=== PATIENT | male | born 1935 | race American Indian/Alaskan Native ===

== ENCOUNTER 2019-03-29 09:17 | Observation (INO) | payer BC, MEDICARE ==
[2019-03-29 09:17] VITALS: BMI 28.0
--- NOTE | 2019-03-29 10:21 | RAD ---
Date of service: 03/29/2019 PROCEDURE: CHEST RADIOGRAPH, 1 VIEW HISTORY: chest pain COMPARISON: 05/30/2015 FINDINGS: LUNGS: Clear. PLEURA: No pneumothorax or pleural fluid seen. CARDIOVASCULAR: No aortic atherosclerotic calcification present. Normal heart size. Permanent pacemaker. OSSEOUS STRUCTURES: No significant abnormalities. VISUALIZED UPPER ABDOMEN: Normal. OTHER FINDINGS: None. IMPRESSION: No active disease.
[2019-03-29 10:38] LABS: BASO % 0.5 % (0.0-2.0); EOS # 0.2 K/uL (0.0-0.7); LYMPH # 0.5 K/uL (1.0-4.3); LYMPH % 7.1 % (20.0-40.0); MEAN CELL VOLUME 85.1 fL (80.0-94.0); MEAN CORPUSCULAR HEMOGLOBIN 28.1 pg (27.0-31.0); MEAN PLATELET VOLUME 9.1 fL (7.2-11.7); MONO # 0.4 K/uL (0.0-0.8); MONO % 5.4 % (0.0-10.0); NEUT # 5.6 K/uL (1.8-7.0); PLATELET COUNT 163 K/uL (130-400); RBC 4.99 Mil/uL (4.40-5.90); RED CELL DISTRIBUTION WIDTH 14.3 % (11.5-14.5); WHITE BLOOD COUNT 6.7 K/uL (4.8-10.8)
--- NOTE | 2019-03-29 10:40 | C.PDOC ---
Time Seen by Provider: 03/29/19 09:34 Chief Complaint (Nursing): Dizziness/Lightheaded Past Medical History Vital Signs: Last Vital Signs Temp 98.7 F 03/29/19 09:24 Pulse 71 03/29/19 09:24 Resp 18 03/29/19 09:24 BP 134/73 03/29/19 09:24 Pulse Ox 100 03/29/19 09:24 Primary Care Provider: Sanjiv Mandel - Medical History PMH: Arthritis, Atrial Fibrillation, Benign Prostatic Hyperplasia, Cardia Arrhythmia (A FIB), CHF, HTN, Hypercholesterolemia, Kidney Stones, Peripheral Edema, Chronic Kidney Disease Comment Only: Osteoporosis (.) Surgical History: Appendectomy, Endoscopy (1 MONTH AGO), Pacemaker - [facility] Procedures CATARAC PHACOEMULS/ASPIR (11/26/14) CLOSED ENDOSCOPIC BIOPSY OF LARGE INTESTINE (01/18/14) ESOPHAGEAL DILATION (01/08/15) INITIAL INSERT OF SING CHAMB DEV, RATE RESPONSIVE (04/29/15) INITIAL INSERT OF TRANS. LEADS INTO VENTRICLE (04/29/15) INSERT INDWELLING CATH (02/02/14) INSERT LENS AT CATAR EXT (11/26/14) OTH & OPEN REPAIR DIRECT INGUINAL HERNIA W GRAFT OR PROSTH (03/03/15) OTH TRANSURETHRAL PROSTATECTOMY (01/18/14) OTHER ENDOSCOPY OF SM INTEST (01/08/15) OTHER ESOPHAGOSCOPY (07/31/14) RETROGRADE PYELOGRAM (01/18/14) Family History: States: Unknown Family Hx - Social History Hx Tobacco Use: Yes Hx Alcohol Use: No Hx Substance Use: No - Immunization History Hx Tetanus Toxoid Vaccination: No Hx Influenza Vaccination: Yes Hx Pneumococcal Vaccination: No ED Course And Treatment ECG: Viewed By Me, Discussed With Ornithology Teacher Interpretation Of ECG: Ventricular rhythm Rate From EC O2 Sat by Pulse Oximetry: 100 Disposition - Disposition
--- NOTE | 2019-03-29 10:42 | C.PDOC ---
History Of Present Illness 83 year old male with PMHx of HTN and pacemaker placement presents to the ED complaining of intermittent dizziness for 3 days. Reports he had an appointment today with his Car Repairer at [facility] but he felt too dizzy which prompted ED visit. States he feels light-headed and unsteady. Notes dizziness is associated with movement and positioning and he feels better when he is lying down. Denies any fever, chills, dysuria, constipation, chest pain, abdominal pain, headache, nausea, vomiting. Denies history of NC, stroke, or cardiac stents. Time Seen by Provider: 03/29/19 09:34 Chief Complaint (Nursing): Dizziness/Lightheaded Past Medical History Vital Signs: Last Vital Signs Temp 98.7 F 03/29/19 09:24 Pulse 71 03/29/19 09:24 Resp 18 03/29/19 09:24 BP 134/73 03/29/19 09:24 Pulse Ox 100 03/29/19 09:24 Primary Care Provider: Sanjiv Mandel - Medical History PMH: Arthritis, Atrial Fibrillation, Benign Prostatic Hyperplasia, Cardia Arrhythmia (A FIB), CHF, HTN, Hypercholesterolemia, Kidney Stones, Peripheral Edema, Chronic Kidney Disease Comment Only: Osteoporosis (.) Surgical History: Appendectomy, Endoscopy (1 MONTH AGO), Pacemaker - [facility] Procedures CATARAC PHACOEMULS/ASPIR (11/26/14) CLOSED ENDOSCOPIC BIOPSY OF LARGE INTESTINE (01/18/14) ESOPHAGEAL DILATION (01/08/15) INITIAL INSERT OF SING CHAMB DEV, RATE RESPONSIVE (04/29/15) INITIAL INSERT OF TRANS. LEADS INTO VENTRICLE (04/29/15) INSERT INDWELLING CATH (02/02/14) INSERT LENS AT CATAR EXT (11/26/14) OTH & OPEN REPAIR DIRECT INGUINAL HERNIA W GRAFT OR PROSTH (03/03/15) OTH TRANSURETHRAL PROSTATECTOMY (01/18/14) OTHER ENDOSCOPY OF SM INTEST (01/08/15) OTHER ESOPHAGOSCOPY (07/31/14) RETROGRADE PYELOGRAM (01/18/14) Family History: States: Unknown Family Hx - Social History Hx Tobacco Use: Yes Hx Alcohol Use: No Hx Substance Use: No - Immunization History Hx Tetanus Toxoid Vaccination: No Hx Influenza Vaccination: Yes Hx Pneumococcal Vaccination: No Review Of Systems Except As Marked, All Systems Reviewed And Found Negative. Constitutional: Negative for: Fever, Chills Cardiovascular: Negative for: Chest Pain Gastrointestinal: Negative for: Nausea, Vomiting, Abdominal Pain Genitourinary: Negative for: Dysuria Neurological: Positive for: Dizziness Physical Exam - Physical Exam Appears: Non-toxic, No Acute Distress Skin: Warm, Dry, No Rash Head: Normacephalic Eye(s): bilateral: Normal Inspection Nose: Normal Oral Mucosa: Moist Neck: Supple Cardiovascular: Rhythm Regular, Other (paced rhythm) Respiratory: Normal Breath Sounds, No Rales, No Rhonchi, No Wheezing Gastrointestinal/Abdominal: Soft, No Tenderness Extremity: Normal ROM, Other (5/5 strength of bilateral upper extremities and lower extremities ) Extremity: Bilateral: Atraumatic, No Pedal Edema, Normal Color And Temperature, Normal ROM Neurological/Psych: Oriented x3, Normal Speech, Normal Cranial Nerves (2-12 cranial nerves WNL ), Normal Motor, Normal Sensation ED Course And Treatment - Laboratory Results Result Diagrams: 03/29/19 10:29 03/29/19 10:29 ECG: Interpreted By Me, Viewed By Me Interpretation Of ECG: Paced rhythm Rate From EC O2 Sat by Pulse Oximetry: 100 (RA) - Other Rad CXR X-Ray: Viewed By Me, Read By Radiologist Interpretation: Accession No. : [id number]. Patient Name / ID : ALLIE POLLACK / [id number]. Exam Date : 03/29/2019 10:04:03 ( Approved ). Study Comment : Sex / Age : M / 83Y. Creator : Alina Diana. Dictator : Bassem Tucker MD. Feed Mill Lab Technician : Vulcanizer Rubber Plate : Bassem Tucker MD. Approver2 : Report Date : 03/29/2019 10:11:26. My Comment : . Date of service: 03/29/2019. PROCEDURE: CHEST RADIOGRAPH, 1 VIEW. HISTORY: chest pain. COMPARISON: 05/30/2015. FINDINGS: LUNGS: Clear. PLEURA: No pneumothorax or pleural fluid seen. CARDIOVASCULAR: No aortic atherosclerotic calcification present. Normal heart size. Permanent pacemaker. OSSEOUS STRUCTURES: No significant abnormalities. VISUALIZED UPPER ABDOMEN: Normal. OTHER FINDINGS: None. IMPRESSION: No active disease. - CT Scan/US CT head Other Rad Studies (CT/US): Read By Radiologist, Radiology Report Reviewed CT/US Interpretation: Accession No. : [id number]. Patient Name / ID : ALLIE POLLACK / [id number]. Exam Date : 03/29/2019 10:56:04 ( Approved ). Study Comment : Sex / Age : M / 83Y. Creator : Gisselle Bang. Dictator : Kathy Menendez MD. Feed Mill Lab Technician : Vul[employer] Rub[employer] Plate : Kathy Menendez MD. [employer] Plate 2 : Report Date : 03/29/2019 11:08:25. My Comment : . Date of service: 03/29/2019. PROCEDURE: CT HEAD WITHOUT CONTRAST. HISTORY: R/O Bleed. COMPARISON: 12/15/2013. TECHNIQUE: Axial computed tomography images were obtained through the head/brain without intravenous contrast. Radiation dose: Total exam DLP = 1003.91 mGy-cm. This CT exam was performed using one or more of the following dose reduction techniques: Automated exposure control, adjustment of the mA and/or kV according to patient size, and/or use of iterative reconstruction technique. FINDINGS: HEMORRHAGE: No intracranial hemorrhage. BRAIN: There are mild chronic microangiopathic changes. There is no mass, mass effect or abnormal extra-axial fluid collection. There is no territorial infarction. The midline sagittal structures are normal. VENTRICLES: There is mild age-related global parenchymal volume loss and proportionate enlargement of the ventricles and cortical sulci. CALVARIUM: There is no calvarial fracture or extracranial soft tissue swelling. PARANASAL SINUSES: Predominantly clear. MASTOID AIR CELLS: Predominantly clear. OTHER FINDINGS: None. IMPRESSION: No acute intracranial abnormality. Mild chronic microangiopathic changes and mild age- related global parenchymal volume loss. Medical Decision Making Medical Decision Making: Differentials: Stroke, Cardiac related syncope, Positional vertigo, infections Plan: - CT head - EKG - Bloodwork - UA - CXR On reevaluation, patient reports he is still feeling lightheaded and dizzy. Discussed with patient possibility of admission. Agrees to stay for observation. Spoke with Dr. Bell, Cardiology. Agrees with plan Spoke with Dr. Otto. Accepts patient for admission. Disposition Discussed With .: Carla Henry Doctor Will See Patient In The: Hospital - Disposition Disposition: HOSPITALIZED Disposition Time: 12:09 Condition: GUARDED - Clinical Impression Clinical Impression: Dizziness, Atrial fibrillation Decision To Admit - Pt Status Changed To: Hospital Disposition Of: Observation - . Bed Request Type: Telemetry Admitting Physician: Carla Henry Patient Diagnosis: Dizziness, Atrial fibrillation
[2019-03-29 11:00] LABS: BLOOD UREA NITROGEN 25 mg/dL (9-20); CALCIUM 9.2 mg/dl (8.6-10.4); GFR NON-AFRICAN AMERICAN 52
[2019-03-29 11:04] LABS: ALB/GLOB RATIO 1.3 (1.0-2.1); ALBUMIN 4.1 g/dL (3.5-5.0); ALT/SGPT < 6 U/L (21-72); AST/SGOT 40 U/L (17-59)
[2019-03-29 11:06] LABS: B-TYPE NATRIURETIC PEPTIDE 4820 pg/mL (0-900)
[2019-03-29 11:07] LABS: EOSINOPHIL 4 % (0-4); LYMPHOCYTE 10 % (20-40); MONOCYTE 9 % (0-10); NEUTROPHIL 77 % (50-75); PLATELET ESTIMATE NORMAL (NORMAL); TOTAL CELLS COUNTED 100
[2019-03-29 11:10] LABS: LARGE PLATELETS PRESENT; OVALOCYTES SLIGHT
--- NOTE | 2019-03-29 11:23 | CT ---
Date of service: 03/29/2019 PROCEDURE: CT HEAD WITHOUT CONTRAST. HISTORY: R/O Bleed COMPARISON: 12/15/2013. TECHNIQUE: Axial computed tomography images were obtained through the head/brain without intravenous contrast. Radiation dose: Total exam DLP = 1003.91 mGy-cm. This CT exam was performed using one or more of the following dose reduction techniques: Automated exposure control, adjustment of the mA and/or kV according to patient size, and/or use of iterative reconstruction technique. FINDINGS: HEMORRHAGE: No intracranial hemorrhage. BRAIN: There are mild chronic microangiopathic changes. There is no mass, mass effect or abnormal extra-axial fluid collection. There is no territorial infarction. The midline sagittal structures are normal. VENTRICLES: There is mild age-related global parenchymal volume loss and proportionate enlargement of the ventricles and cortical sulci. CALVARIUM: There is no calvarial fracture or extracranial soft tissue swelling. PARANASAL SINUSES: Predominantly clear. MASTOID AIR CELLS: Predominantly clear. OTHER FINDINGS: None. IMPRESSION: No acute intracranial abnormality. Mild chronic microangiopathic changes and mild age-related global parenchymal volume loss.
[2019-03-29 11:47] LABS: URINE BILIRUBIN NEGATIVE (NEGATIVE); URINE BLOOD NEGATIVE (NEGATIVE); URINE CLARITY Clear (Clear); URINE COLOR Yellow (YELLOW); URINE GLUCOSE (UA) NORMAL (Normal); URINE LEUKOCYTE ESTERASE NEG Leu/uL (Negative); URINE PROTEIN NEGATIVE (NEGATIVE)
--- NOTE | 2019-03-29 17:27 | CP.PCM.HP ---
History of Present Illness - History of Present Illness History of Present Illness: This is an 83 y/o male hypetensive with history of paroxysmal afib and SSS S/P permanent Pacemaker insertion who was amitted through the ER because of severe dizziness. Patient claims that the dizziness started this morning when he felt very dizzy on and off whenever he moved around. He was unable to walk because he felt very unsteady. He denies any palpitation, chest pain or ringing in the ears. He went tot he ER because of the persistent dizziness and was subsequently admitted for observation and further evaluation. Present on Admission - Present on Admission Any Indicators Present on Admission: No Past Patient History - Infectious Disease Hx of Infectious Diseases: None - Past Medical History & Family History Past Medical History?: Yes - Past Social History Smoking Status: Former Smoker Alcohol: None Home Situation {Lives}: Alone, Other - CARDIAC Hx Atrial Fibrillation: Yes Hx Cardia Arrhythmia: Yes (A FIB) Hx Congestive Heart Failure: Yes Hx Hypercholesterolemia: Yes Hx Hypertension: Yes Hx Pacemaker: Yes Hx Peripheral Edema: Yes - PULMONARY Hx Respiratory Disorders: No - NEUROLOGICAL Hx Paralysis: No - HEENT Hx HEENT Problems: Yes Hx Cataracts: Yes (JOEL. REMOVED) - RENAL Hx Chronic Kidney Disease: Yes Hx Kidney Stones: Yes - ENDOCRINE/METABOLIC Hx Endocrine Disorders: No - HEMATOLOGICAL/ONCOLOGICAL Hx Blood Transfusions: No - INTEGUMENTARY Hx Dermatological Problems: Yes - MUSCULOSKELETAL/RHEUMATOLOGICAL Hx Arthritis: Yes Hx Osteoporosis: (.) - GASTROINTESTINAL Hx Gastrointestinal Disorders: No HX Swallowing Problems: Yes (History of benign esophageal stricture) - GENITOURINARY/GYNECOLOGICAL Hx Genitourinary Disorders: Yes Hx Prostate Problems: Yes (ENLARGED) - PSYCHIATRIC Hx Substance Use: No - SURGICAL HISTORY Hx Appendectomy: Yes - ANESTHESIA Hx Anesthesia: Yes Hx Anesthesia Reactions: No Hx Malignant Hyperthermia: No Meds Allergies/Adverse Reactions: Allergies Allergy/AdvReac Type Severity Reaction Status Date / Time No Known Allergies Allergy Verified 10/01/15 06:59 Physical Exam - Constitutional Appears: No Acute Distress - Head Exam Head Exam: NORMOCEPHALIC - Eye Exam Eye Exam: Normal appearance - ENT Exam ENT Exam: Mucous Membranes Moist, Normal Exam - Neck Exam Neck exam: Positive for: Normal Inspection - Respiratory Exam Respiratory Exam: Clear to Auscultation Bilateral, NORMAL BREATHING PATTERN - Cardiovascular Exam Cardiovascular Exam: REGULAR RHYTHM, RRR, +S1, +S2 - GI/Abdominal Exam GI & Abdominal Exam: Normal Bowel Sounds, Soft - Extremities Exam Extremities exam: Positive for: normal inspection - Back Exam Back exam: NORMAL INSPECTION - Neurological Exam Neurological exam: Alert, CN II-XII Intact, Oriented x3 - Psychiatric Exam Psychiatric exam: Normal Affect, Normal Mood - Skin Skin Exam: Dry, Intact, Normal Color, Warm Results - Vital Signs Recent Vital Signs: Last Vital Signs Temp 98.4 F 03/29/19 16:34 Pulse 76 03/29/19 16:34 Resp 20 03/29/19 16:34 BP 153/84 H 03/29/19 16:34 Pulse Ox 98 03/29/19 16:34 - Labs Result Diagrams: 03/29/19 10:29 03/29/19 10:29 Labs: Laboratory Results - last 24 hr 03/29/19 03/29/19 03/29/19 09:33 09:48 10:29 WBC 6.7 RBC 4.99 Hgb 14.0 Hct 42.5 MCV 85.1 MCH 28.1 MCHC 33.0 RDW 14.3 Plt Count 163 MPV 9.1 Neut % (Auto) 84.0 H Lymph % (Auto) 7.1 L [place] % (Auto) 5.4 Eos % (Auto) 3.0 Baso % (Auto) 0.5 Neut # (Auto) 5.6 Lymph # (Auto) 0.5 L [place] # (Auto) 0.4 Eos # (Auto) 0.2 Baso # (Auto) 0.0 Neutrophils % (Manual) 77 H Lymphocytes % (Manual) 10 L Monocytes % (Manual) 9 Eosinophils % (Manual) 4 Platelet Estimate Normal Large Platelets Present Ovalocytes Slight Sodium Potassium Chloride Carbon Dioxide Anion Gap BUN Creatinine Est GFR ( Amer) Est GFR (Non-Af Amer) POC Glucose (mg/dL) 111 H Random Glucose Calcium Total Bilirubin AST ALT Alkaline Phosphatase Troponin I NT-Pro-B Natriuret Pep Total Protein Albumin Globulin Albumin/Globulin Ratio Urine Color Yellow Urine Clarity Clear Urine pH 5.0 Ur Specific [place] 1.014 Urine Protein Negative Urine Glucose (UA) Normal Urine Ketones Negative Urine Blood Negative Urine Nitrate Negative Urine Bilirubin Negative Urine Urobilinogen 2.0 Ur Leukocyte Esterase Neg Urine WBC (Auto) < 1 Urine RBC (Auto) 2 03/29/19 10:29 WBC RBC Hgb Hct MCV MCH MCHC RDW Plt Count MPV Neut % (Auto) Lymph % (Auto) [place] % (Auto) Eos % (Auto) Baso % (Auto) Neut # (Auto) Lymph # (Auto) [place] # (Auto) Eos # (Auto) Baso # (Auto) Neutrophils % (Manual) Lymphocytes % (Manual) Monocytes % (Manual) Eosinophils % (Manual) Platelet Estimate Large Platelets Ovalocytes Sodium 135 Potassium 5.4 H Chloride 104 Carbon Dioxide 21 L Anion Gap 16 BUN 25 H Creatinine 1.3 Est GFR ( Amer) > 60 Est GFR (Non-Af Amer) 52 POC Glucose (mg/dL) Random Glucose 97 Calcium 9.2 Total Bilirubin 1.5 H AST 40 ALT < 6 L D Alkaline Phosphatase 50 Troponin I 0.0220 NT-Pro-B Natriuret Pep 4820 H Total Protein 7.3 Albumin 4.1 Globulin 3.2 Albumin/Globulin Ratio 1.3 Urine Color Urine Clarity Urine pH Ur Specific [place] Urine Protein Urine Glucose (UA) Urine Ketones Urine Blood Urine Nitrate Urine Bilirubin Urine Urobilinogen Ur Leukocyte Esterase Urine WBC (Auto) Urine RBC (Auto) Assessment & Plan (1) Dizziness Status: Acute (2) Dehydration Assessment and Plan: +pre-renal azotemoia Will start on cautious hydration and monitor electrolytes and blood count Status: Acute (3) Hypertension Status: Chronic Priority: Medium (4) Presence of cardiac pacemaker Assessment and Plan: stable, pacemaker seems to be functioning well as noted on EKG and monitor Status: Chronic Decision To Admit - Pt Status Changed To: Hospital Disposition Of: Observation - . Bed Request Type: Telemetry Admitting Physician: Carla Henry
[2019-03-29] MEDS: Sodium Chloride 0.45% 1,000 ML IV SCH (18:30)
[2019-03-30 05:13] VITALS: BP 144/78
[2019-03-30] MEDS: Sodium Chloride 0.45% 1,000 ML IV SCH (06:00)
[2019-03-30 06:51] LABS: HEMOGLOBIN 13.9 g/dL (12.0-18.0); MEAN CELL VOLUME 84.9 fL (80.0-94.0); MEAN CORPUSCULAR HEMOGLOBIN 28.4 pg (27.0-31.0); MEAN CORPUSCULAR HGB CONC 33.5 g/dL (33.0-37.0); MEAN PLATELET VOLUME 8.7 fL (7.2-11.7); RBC 4.9 Mil/uL (4.40-5.90); RED CELL DISTRIBUTION WIDTH 14.3 % (11.5-14.5); WHITE BLOOD COUNT 5.3 K/uL (4.8-10.8)
[2019-03-30 07:05] LABS: ALB/GLOB RATIO 1.2 (1.0-2.1); ALBUMIN 3.5 g/dL (3.5-5.0); ALT/SGPT 18 U/L (21-72); AST/SGOT 16 U/L (17-59); BLOOD UREA NITROGEN 22 mg/dL (9-20); CALCIUM 9.1 mg/dl (8.6-10.4); GFR NON-AFRICAN AMERICAN 52
[2019-03-30 07:11] LABS: CK-MB 1.46 ng/mL (0.0-3.38)
[2019-03-30 08:26] VITALS: PULSE 69
[2019-03-30] MEDS ORDERED: Pantoprazole 40 mg EC Tab PO SCH (10:00)
[2019-03-30 11:46] VITALS: RESP 18; TEMP 97.8; O2SAT 98
--- NOTE | 2019-03-30 11:58 | CP.PCM.CON ---
History of Present Illness - History of Present Illness History of Present Illness: CARDIAC EP CONSULT NOTE Reason for consult: dizziness HPI: Pt is an 83 yo man with hx of PAF (on Xarelto); SSS; PPM implant; who pr esents with progressive dizziness starting yesterday. It is worsening by standing or moving around. No syncope, palpitations, SOB, chest pain. Drinks 1-2 glasses of water daily. EP is now consulted by Dr. Carla Otto PMH: as above ROS: as above, otherwise negative SH: no tob/etoh/drugs FH: no premature CAD Meds: reviewed All: reviewed Past Patient History - Infectious Disease Hx of Infectious Diseases: None - Past Medical History & Family History Past Medical History?: Yes - Past Social History Smoking Status: Former Smoker Alcohol: None Home Situation {Lives}: Alone, Other - CARDIAC Hx Atrial Fibrillation: Yes Hx Cardia Arrhythmia: Yes (A FIB) Hx Congestive Heart Failure: Yes Hx Hypercholesterolemia: Yes Hx Hypertension: Yes Hx Pacemaker: Yes Hx Peripheral Edema: Yes - PULMONARY Hx Respiratory Disorders: No - NEUROLOGICAL Hx Paralysis: No - HEENT Hx HEENT Problems: Yes Hx Cataracts: Yes (JOEL. REMOVED) - RENAL Hx Chronic Kidney Disease: Yes Hx Kidney Stones: Yes - ENDOCRINE/METABOLIC Hx Endocrine Disorders: No - HEMATOLOGICAL/ONCOLOGICAL Hx Blood Transfusions: No - INTEGUMENTARY Hx Dermatological Problems: Yes - MUSCULOSKELETAL/RHEUMATOLOGICAL Hx Arthritis: Yes Hx Osteoporosis: (.) - GASTROINTESTINAL Hx Gastrointestinal Disorders: No HX Swallowing Problems: Yes (History of benign esophageal stricture) - GENITOURINARY/GYNECOLOGICAL Hx Genitourinary Disorders: Yes Hx Prostate Problems: Yes (ENLARGED) - PSYCHIATRIC Hx Substance Use: No - SURGICAL HISTORY Hx Appendectomy: Yes - ANESTHESIA Hx Anesthesia: Yes Hx Anesthesia Reactions: No Hx Malignant Hyperthermia: No Meds Allergies/Adverse Reactions: Allergies Allergy/AdvReac Type Severity Reaction Status Date / Time No Known Allergies Allergy Verified 10/01/15 06:59 - Medications Medications: Current Medications Amlodipine Besylate (Norvasc) 10 mg PO DAILY [facility] Last Admin: 03/30/19 09:21 Dose: 10 mg Carvedilol (Coreg) 12.5 mg PO BID [facility] Last Admin: 03/30/19 09:21 Dose: 12.5 mg Sodium Chloride (Sodium Chloride 0.45%) 1,000 mls @ 82 mls/hr IV .[id number] [facility] Last Admin: 05/18/19 06:00 Dose: 82 mls/hr Lisinopril (Zestril) 40 mg PO DAILY [facility] Last Admin: 03/30/19 09:20 Dose: 40 mg Pantoprazole Sodium (Protonix Ec Tab) 40 mg PO DAILY [facility] Last Admin: 03/30/19 09:20 Dose: 40 mg Rivaroxaban (Xarelto) 15 mg PO DAILY [facility] Last Admin: 03/30/19 09:20 Dose: 15 mg Physical Exam - Constitutional Appears: Well - Head Exam Head Exam: ATRAUMATIC - Eye Exam Eye Exam: Normal appearance - ENT Exam ENT Exam: Mucous Membranes Moist - Respiratory Exam Respiratory Exam: Clear to Auscultation Bilateral - Cardiovascular Exam Cardiovascular Exam: REGULAR RHYTHM, +S1, +S2. absent: Systolic Murmur - GI/Abdominal Exam GI & Abdominal Exam: Soft - Extremities Exam Extremities exam: Negative for: pedal edema - Psychiatric Exam Psychiatric exam: Normal Affect - Skin Skin Exam: Normal Color Results - Vital Signs Recent Vital Signs: Last Vital Signs Temp 97.8 F 03/30/19 07:00 Pulse 69 03/30/19 08:00 Resp 18 03/30/19 07:00 BP 144/78 03/30/19 09:21 Pulse Ox 98 03/30/19 07:00 - Labs Result Diagrams: 03/30/19 06:36 03/30/19 06:36 Labs: Laboratory Results - last 24 hr 03/30/19 03/30/19 06:36 06:36 WBC 5.3 RBC 4.90 Hgb 13.9 Hct 41.6 MCV 84.9 MCH 28.4 MCHC 33.5 RDW 14.3 Plt Count 155 MPV 8.7 Sodium 135 Potassium 4.0 Chloride 100 Carbon Dioxide 26 Anion Gap 13 BUN 22 H Creatinine 1.3 Est GFR ( Amer) > 60 Est GFR (Non-Af Amer) 52 Random Glucose 95 Calcium 9.1 Phosphorus 2.9 Magnesium 1.9 Total Bilirubin 0.6 AST 16 L D ALT 18 L D Alkaline Phosphatase 60 Total Creatine Kinase 63 CK-MB (Mass) 1.46 Troponin I < 0.0120 Total Protein 6.4 Albumin 3.5 Globulin 2.9 Albumin/Globulin Ratio 1.2 TSH 3rd Generation 0.43 L - Impressions Impression: EKG: Afib, V-paced rhythm Assessment & Plan - Assessment and Plan (Free Text) Assessment: 1. Dizziness 2. Singl chamber PPM implant ([employer]) in 04/2015 -- has v-paced rhythm on EKG 3. PAF with SSS -- on Xarelto Plan: 1. Interrogate PPM -- if ppm is normally functioning, then no further EP workup required at this time
--- NOTE | 2019-03-30 22:02 | CP.PCM.DIS ---
Provider - Provider Date of Admission: 03/29/19 12:09 Attending physician: Carla Henry MD Consults: 03/29/19 12:10 Cardiology Consult Routine Comment: Consulting Provider: Dhruv Bell Consulting Physician: Dhruv Bell Reason for Consult: pre-syncope Time Spent in preparation of Discharge (in minutes): 30 Diagnosis - Discharge Diagnosis (1) Dizziness Status: Acute (2) Dehydration Status: Acute (3) Hypertension Status: Chronic Priority: Medium (4) Presence of cardiac pacemaker Status: Chronic (5) Atrial fibrillation Status: Chronic Priority: Medium Comment: stable Hospital Course - Lab Results Lab Results: Most Recent Lab Values WBC 5.3 K/uL (4.8-10.8) 03/30/19 06:36 RBC 4.90 Mil/uL (4.40-5.90) 03/30/19 06:36 Hgb 13.9 g/dL (12.0-18.0) 03/30/19 06:36 Hct 41.6 % (35.0-51.0) 03/30/19 06:36 MCV 84.9 fL (80.0-94.0) 03/30/19 06:36 MCH 28.4 pg (27.0-31.0) 03/30/19 06:36 MCHC 33.5 g/dL (33.0-37.0) 03/30/19 06:36 RDW 14.3 % (11.5-14.5) 03/30/19 06:36 Plt Count 155 K/uL (130-400) 03/30/19 06:36 MPV 8.7 fL (7.2-11.7) 03/30/19 06:36 Neut % (Auto) 84.0 % (50.0-75.0) H 03/29/19 10:29 Lymph % (Auto) 7.1 % (20.0-40.0) L 03/29/19 10:29 [place] % (Auto) 5.4 % (0.0-10.0) 03/29/19 10:29 Eos % (Auto) 3.0 % (0.0-4.0) 03/29/19 10:29 Baso % (Auto) 0.5 % (0.0-2.0) 03/29/19 10:29 Neut # (Auto) 5.6 K/uL (1.8-7.0) 03/29/19 10:29 Lymph # (Auto) 0.5 K/uL (1.0-4.3) L 03/29/19 10:29 [place] # (Auto) 0.4 K/uL (0.0-0.8) 03/29/19 10:29 Eos # (Auto) 0.2 K/uL (0.0-0.7) 03/29/19 10:29 Baso # (Auto) 0.0 K/uL (0.0-0.2) 03/29/19 10:29 Neutrophils % (Manual) 77 % (50-75) H 03/29/19 10:29 Lymphocytes % (Manual) 10 % (20-40) L 03/29/19 10:29 Monocytes % (Manual) 9 % (0-10) 03/29/19 10:29 Eosinophils % (Manual) 4 % (0-4) 03/29/19 10:29 Platelet Estimate Normal (NORMAL) 03/29/19 10:29 Large Platelets Present 03/29/19 10:29 Ovalocytes Slight 03/29/19 10:29 Sodium 135 mmol/L (132-148) 03/30/19 06:36 Potassium 4.0 mmol/L (3.6-5.2) 03/30/19 06:36 Chloride 100 mmol/L (98-107) 03/30/19 06:36 Carbon Dioxide 26 mmol/L (22-30) 03/30/19 06:36 Anion Gap 13 (10-20) 03/30/19 06:36 BUN 22 mg/dL (9-20) H 03/30/19 06:36 Creatinine 1.3 mg/dL (0.8-1.5) 03/30/19 06:36 Est GFR ( Amer) > 60 03/30/19 06:36 Est GFR (Non-Af Amer) 52 03/30/19 06:36 POC Glucose (mg/dL) 111 mg/dL (65-110) H 03/29/19 09:33 Random Glucose 95 mg/dL (75-110) 03/30/19 06:36 Calcium 9.1 mg/dl (8.6-10.4) 03/30/19 06:36 Phosphorus 2.9 mg/dL (2.5-4.5) 03/30/19 06:36 Magnesium 1.9 mg/dL (1.6-2.3) 03/30/19 06:36 Total Bilirubin 0.6 mg/dL (0.2-1.3) 03/30/19 06:36 AST 16 U/L (17-59) L D 03/30/19 06:36 ALT 18 U/L (21-72) L D 03/30/19 06:36 Alkaline Phosphatase 60 U/L (38-126) 03/30/19 06:36 Total Creatine Kinase 63 U/L (55-170) 03/30/19 06:36 CK-MB (Mass) 1.46 ng/mL (0.0-3.38) 03/30/19 06:36 Troponin I < 0.0120 ng/mL (0.00-0.120) 03/30/19 06:36 NT-Pro-B Natriuret Pep 4820 pg/mL (0-900) H 03/29/19 10:29 Total Protein 6.4 g/dL (6.3-8.3) 03/30/19 06:36 Albumin 3.5 g/dL (3.5-5.0) 03/30/19 06:36 Globulin 2.9 gm/dL (2.2-3.9) 03/30/19 06:36 Albumin/Globulin Ratio 1.2 (1.0-2.1) 03/30/19 06:36 TSH 3rd Generation 0.43 mIU/L (0.46-4.68) L 03/30/19 06:36 Urine Color Yellow (YELLOW) 03/29/19 09:48 Urine Clarity Clear (Clear) 03/29/19 09:48 Urine pH 5.0 (5.0-8.0) 03/29/19 09:48 Ur Specific [place] 1.014 (1.003-1.030) 03/29/19 09:48 Urine Protein Negative mg/dL (NEGATIVE) 03/29/19 09:48 Urine Glucose (UA) Normal mg/dL (Normal) 03/29/19 09:48 Urine Ketones Negative mg/dL (NEGATIVE) 03/29/19 09:48 Urine Blood Negative (NEGATIVE) 03/29/19 09:48 Urine Nitrate Negative (NEGATIVE) 03/29/19 09:48 Urine Bilirubin Negative (NEGATIVE) 03/29/19 09:48 Urine Urobilinogen 2.0 mg/dL (0.2-1.0) 03/29/19 09:48 Ur Leukocyte Esterase Neg Aashish/uL (Negative) 03/29/19 09:48 Urine WBC (Auto) < 1 /hpf (0-5) 03/29/19 09:48 Urine RBC (Auto) 2 /hpf (0-3) 03/29/19 09:48 - Hospital Course Hospital Course: This is an 83 y/o male patient with history of hypertension, atrial fib, SSS s/P PAcemaker placement who was admitted with dizziness. Patient was admitted for observation to telemetry bed. Consultation was obtained with EP because of history of Permanent pacemaker placement. Pacemaker was interrogated and was found to be functioning very well. He also had tests to r/o an acute ischemic event which was basically ruled out by the normal results and EKG's that did not show any acute changes. He was given IVF and BMP was taken the next day that showed normalization of his BUM an other electrolytes. CHis vital signs were stable and his dizziness was relieved and he was thus discharged for follow up of his other tests outpatient. he was also advised to follow up in the office in 1 week. Discharge Exam - Head Exam Head Exam: ATRAUMATIC Discharge Plan - Follow Up Plan Condition: GUARDED Disposition: HOME/ ROUTINE Instructions: Dizziness, Nonvertigo, (DC) Additional Instructions: Continue taking all home medications as prescriber EXCEPT Lasix (furosemide) Take Lasix every other day. Next dose Monday, then Monday, , Monday. Follow up with an office appointment either Monday or Monday with Dr Otto. Office Referrals: Fam-Carla Mg MD [Staff Provider] -
--- NOTE | 2019-04-01 09:19 | VASCLAB ---
Date of service: 03/30/2019 PROCEDURE: Carotid Duplex Exam. HISTORY: Dizziness COMPARISON: Prior exam 12/16/2013. TECHNIQUE: Grayscale and duplex Doppler evaluation of the cervical carotid and vertebral arteries were performed. The common carotid, carotid bifurcations and cervical Internal Carotid Artery (ICA) and proximal External Carotid Artery (ECA) were evaluated. The vertebral arteries were evaluated for gross patency and flow direction. Report prepared by MELISSA Crowell FINDINGS: RIGHT CAROTID ARTERIES: 1. Common Carotid Artery: No significant focal plaque formation of the right common carotid artery. Maximum Peak Systolic velocity: 67 cm/sec: End-diastolic velocity 10 cm/sec. 2. Carotid Bifurcation: plaque formation. Maximum Peak Systolic velocity: 46 cm/sec: End-diastolic velocity 7 cm/sec. 3. Internal Carotid Artery: Plaque description: Calcific 3.1. Proximal Segment: Peak systolic velocity 54 cm/sec: End-diastolic velocity 13 cm/sec - % stenosis 0-15% 3.2. Middle Segment: Peak systolic velocity 65 cm/sec: End-diastolic velocity 19 cm/sec - % stenosis 0-15% 3.3. Distal Segment: Peak systolic velocity 48 cm/sec: End-diastolic velocity 14 cm/sec - % stenosis 0-15% 4. External Carotid Artery: No significant focal plaque formation. Peak systolic velocity 68 cm/sec 5. ICA/CCA Ratio: 1.5 LEFT CAROTID ARTERIES: 1. Common Carotid Artery: No significant focal plaque formation of the left common carotid artery. Maximum Peak Systolic velocity: 85 cm/sec: End-diastolic velocity 12 cm/sec. 2. Carotid Bifurcation: plaque formation. Maximum Peak Systolic velocity: 48 cm/sec: End-diastolic velocity 7 cm/sec. 3. Internal Carotid Artery: Plaque description: Homogeneous 3.1. Proximal Segment: Peak systolic velocity 66 cm/sec: End-diastolic velocity 11 cm/sec - % stenosis 0-15% 3.2. Middle Segment: Peak systolic velocity 48 cm/sec: End-diastolic velocity 13 cm/sec - % stenosis 0-15% 3.3. Distal Segment: Peak systolic velocity 53 cm/sec: End-diastolic velocity 13 cm/sec - % stenosis 0-15% 4. External Carotid Artery: No significant focal plaque formation. Peak systolic velocity 85 cm/sec 5. ICA/CCA Ratio: 1.4 VERTEBRAL ARTERIES: 1. Right Vertebral Artery: The right vertebral artery flow direction is antegrade. 2. Left Vertebral Artery: The left vertebral artery flow direction is antegrade. OTHER FINDINGS: 1. Right Brachial Blood pressure: n/a IV line present. 2. Left Brachial Blood pressure: 130/60 mmHg. 3. No atherosclerotic calcification present IMPRESSION: RIGHT: Duplex scan does not suggest hemodynamically significant stenosis of the right extracranial carotid arteries. LEFT: Duplex scan does not suggest hemodynamically significant stenosis of the left extracranial carotid arteries.
== END 2019-03-30 16:56 | disposition home or self-care (01) ==
LOC: C.ER 09:17 → C.9E 12:09 → C.6T 13:58
PROVIDERS: ADMIT Internal Medicine Cardiovascular Disease; ATTEND Internal Medicine Cardiovascular Disease
DX: R42 Dizziness and giddiness (principal); E86.0 Dehydration; I10 Essential (primary) hypertension; Z95.0 Presence of cardiac pacemaker; I48.91 Unspecified atrial fibrillation; I50.9 Heart failure, unspecified; E78.00 Pure hypercholesterolemia, unspecified; I13.0 Hypertensive heart and chronic kidney disease with heart failure and stage 1 through stage 4 chronic kidney disease, or unspecified chronic kidney disease; N18.9 Chronic kidney disease, unspecified; Z87.442 Personal history of urinary calculi; M81.0 Age-related osteoporosis without current pathological fracture; M19.90 Unspecified osteoarthritis, unspecified site; Z90.49 Acquired absence of other specified parts of digestive tract; I49.5 Sick sinus syndrome; Z79.01 Long term (current) use of anticoagulants; Z87.891 Personal history of nicotine dependence; N40.0 Benign prostatic hyperplasia without lower urinary tract symptoms; Z79.899 Other long term (current) drug therapy
CPT/HCPCS: 36415; 70450; 71045; 80053; 81001; 82948; 83735; 83880; 84100; 84443; 84484; 85025; 85027; 93880; 99285; G0378; J7030

== ENCOUNTER 2019-04-05 05:27 | Observation (INO) | payer MEDICARE ==
[2019-04-05 05:28] VITALS: BMI 28.0
--- NOTE | 2019-04-05 05:38 | C.PDOC ---
History Of Present Illness 83 year old male with PMHx of paroxysmal atrial fibrillation, pacemaker on xarelto and HTN presents to the ED for evaluation. Patient reports he woke up feeling dizzy, states "got up and saw a flash of light, felt everything was movi ng". Patient reports he had stove problems 2 days ago, EMS checked for carbon monoxide toxicity which was negative. Of note patient was admitted and discharged from this institution earlier in the past month. Patient denies any other complaints this time. Time Seen by Provider: 04/05/19 05:35 Chief Complaint (Nursing): Dizziness/Lightheaded History Per: Patient, EMS History/Exam Limitations: no limitations Onset/Duration Of Symptoms: Days Current Symptoms Are (Timing): Still Present Number Of Syncopal Episodes: 1 Activity At Onset Of Symptoms: Had Just Stood up Seizure Or Post-ictal Symptoms: None Possible Causative Factor(s): Lightheaded W/Standing Fall Associated With With Symptoms: No Severity: None Recent travel outside of the [place]: No Additional History Per: Patient Past Medical History Reviewed: Historical Data, Nursing Documentation, Vital Signs - Medical History PMH: Arthritis, Atrial Fibrillation, Benign Prostatic Hyperplasia, Cardia Arrh ythmia (A FIB), CHF, HTN, Hypercholesterolemia, Kidney Stones, Peripheral Edema, Chronic Kidney Disease Comment Only: Osteoporosis (.) Surgical History: Appendectomy, Endoscopy (1 MONTH AGO), Pacemaker - [facility] Procedures CATARAC PHACOEMULS/ASPIR (11/26/14) CLOSED ENDOSCOPIC BIOPSY OF LARGE INTESTINE (01/18/14) ESOPHAGEAL DILATION (01/08/15) INITIAL INSERT OF SING CHAMB DEV, RATE RESPONSIVE (04/29/15) INITIAL INSERT OF TRANS. LEADS INTO VENTRICLE (04/29/15) INSERT INDWELLING CATH (02/02/14) INSERT LENS AT CATAR EXT (11/26/14) OTH & OPEN REPAIR DIRECT INGUINAL HERNIA W GRAFT OR PROSTH (03/03/15) OTH TRANSURETHRAL PROSTATECTOMY (01/18/14) OTHER ENDOSCOPY OF SM INTEST (01/08/15) OTHER ESOPHAGOSCOPY (07/31/14) RETROGRADE PYELOGRAM (01/18/14) Family History: States: Unknown Family Hx - Social History Hx Tobacco Use: Yes Hx Alcohol Use: No Hx Substance Use: No - Immunization History Hx Tetanus Toxoid Vaccination: Yes Hx Influenza Vaccination: Yes Hx Pneumococcal Vaccination: Yes Review Of Systems Constitutional: Negative for: Fever, Chills Eyes: Negative for: Vision Change Cardiovascular: Negative for: Chest Pain, Palpitations Respiratory: Negative for: Shortness of Breath Gastrointestinal: Negative for: Nausea, Vomiting, Abdominal Pain Skin: Negative for: Rash Neurological: Positive for: Dizziness. Negative for: Weakness, Numbness, Headache Physical Exam - Physical Exam Appears: Non-toxic, No Acute Distress Skin: Normal Color, Warm, Dry Head: Atraumatic, Normacephalic Eye(s): bilateral: Normal Inspection, PERRL, EOMI, Other (horizontal nystagmus) Oral Mucosa: Moist Neck: Normal ROM, Supple Chest: Symmetrical Cardiovascular: Rhythm Regular Respiratory: Normal Breath Sounds, No Rales, No Rhonchi, No Wheezing Gastrointestinal/Abdominal: Soft, No Tenderness, No Guarding, No Rebound Extremity: Normal ROM, No Tenderness, No Swelling Neurological/Psych: Oriented x3, Normal Speech, Normal Cognition Gait: Steady ED Course And Treatment - Laboratory Results Result Diagrams: 04/05/19 06:20 04/06/19 07:55 ECG: Interpreted By Me, Viewed By Me ECG Rhythm: A Paced Rate From EC (BPM) O2 Sat by Pulse Oximetry: 98 (ON RA) Pulse Ox Interpretation: Normal Medical Decision Making Medical Decision Making: Plan: * CT head * EKG * Labs * Antivert 50 mg PO * UA ro metaoblci tia/cva infectious cardiac etiology labs ct neg. discussed with pmd will obs for neuro eval Disposition - Disposition Disposition: HOSPITALIZED Disposition Time: 07:00 Condition: STABLE - Clinical Impression Clinical Impression: Dizziness - Scribe Statement The provider has reviewed the documentation as recorded by the Scriballen Rodriguez All medical record entries made by the Leslieiballen were at my direction and personally dictated by me. I have reviewed the chart and agree that the record accurately reflects my personal performance of the history, physical exam, medical decision making, and the department course for this patient. I have also personally directed, reviewed, and agree with the discharge instructions and disposition. Decision To Admit - Pt Status Changed To: Hospital Disposition Of: Observation - . Bed Request Type: Telemetry Admitting Physician: Carla Henry Patient Diagnosis: Dizziness
[2019-04-05 06:28] LABS: BASO % 0.9 % (0.0-2.0); EOS # 0.3 K/uL (0.0-0.7); EOS % 4.6 % (0.0-4.0); HEMOGLOBIN 14.9 g/dL (12.0-18.0); LYMPH # 1.1 K/uL (1.0-4.3); LYMPH % 19.6 % (20.0-40.0); MEAN CELL VOLUME 85.2 fL (80.0-94.0); MEAN CORPUSCULAR HGB CONC 32.9 g/dL (33.0-37.0); MEAN PLATELET VOLUME 8.8 fL (7.2-11.7); MONO # 0.5 K/uL (0.0-0.8); MONO % 8.6 % (0.0-10.0); NEUT # 3.7 K/uL (1.8-7.0); NEUT % 66.3 % (50.0-75.0); RBC 5.32 Mil/uL (4.40-5.90); RED CELL DISTRIBUTION WIDTH 14.2 % (11.5-14.5); WHITE BLOOD COUNT 5.5 K/uL (4.8-10.8)
[2019-04-05 06:39] LABS: PARTIAL THROMBOPLASTIN TIME 39.9 SECONDS (21-34); PROTHROMBIN TIME 22.1 SECONDS (9.7-12.2)
[2019-04-05 06:53] LABS: TROPONIN I 0.021 ng/mL (0.00-0.120)
[2019-04-05 06:54] LABS: ALB/GLOB RATIO 1.2 (1.0-2.1); CALCIUM 9.5 mg/dl (8.6-10.4)
--- NOTE | 2019-04-05 06:54 | CT ---
Date of service: 04/05/2019 PROCEDURE: CT HEAD WITHOUT CONTRAST. HISTORY: dizziness COMPARISON: 03/29/2019 TECHNIQUE: Axial computed tomography images were obtained through the head/brain without intravenous contrast. Radiation dose: Total exam DLP = 1025.93 mGy-cm. This CT exam was performed using one or more of the following dose reduction techniques: Automated exposure control, adjustment of the mA and/or kV according to patient size, and/or use of iterative reconstruction technique. FINDINGS: HEMORRHAGE: No intracranial hemorrhage. BRAIN: No mass effect or edema. Scattered focal lucencies in the subcortical and periventricular white matter suggestive for chronic microvascular ischemic change. Diffuse generalized parenchymal atrophy. VENTRICLES: Unremarkable. No hydrocephalus. CALVARIUM: Unremarkable. PARANASAL SINUSES: Severe mucosal thickening and opacification of the frontal and ethmoid sinuses. MASTOID AIR CELLS: Unremarkable as visualized. No inflammatory changes. OTHER FINDINGS: None. IMPRESSION: No acute intracranial abnormality. Chronic microvascular ischemic change. Diffuse generalized parenchymal atrophy. Sinus mucosal disease as above. If symptoms persists, consider correlation with MRI. A preliminary report was generated by [employer].
[2019-04-05 08:06] LABS: SQUAMOUS EPITHIAL < 1 /hpf (0-5); URINE BILIRUBIN NEGATIVE (NEGATIVE); URINE BLOOD NEGATIVE (NEGATIVE); URINE CLARITY Clear (Clear); URINE COLOR Yellow (YELLOW); URINE GLUCOSE (UA) NORMAL (Normal); URINE LEUKOCYTE ESTERASE NEG Leu/uL (Negative); URINE PROTEIN NEGATIVE (NEGATIVE)
[2019-04-05] MEDS: Sodium Chloride 0.45% 1,000 ML IV SCH (10:54)
--- NOTE | 2019-04-05 12:34 | CP.PCM.CON ---
History of Present Illness - History of Present Illness History of Present Illness: Neurology consult dictated Mr. Navarrete is an 83 yr old gentleman with mild vertigo. There are no neurological signs of stroke. Plan; 1. Repeat CT head. Thankyou Dr. gracia Neurology Past Patient History - Infectious Disease Hx of Infectious Diseases: None - Past Medical History & Family History Past Medical History?: Yes - Past Social History Smoking Status: Former Smoker - CARDIAC Hx Atrial Fibrillation: Yes Hx Cardia Arrhythmia: Yes (A FIB) Hx Congestive Heart Failure: Yes Hx Hypercholesterolemia: Yes Hx Hypertension: Yes Hx Pacemaker: Yes Hx Peripheral Edema: Yes - PULMONARY Hx Respiratory Disorders: No - NEUROLOGICAL Hx Paralysis: No - HEENT Hx HEENT Problems: Yes Hx Cataracts: Yes (JOEL. REMOVED) - RENAL Hx Chronic Kidney Disease: Yes Hx Kidney Stones: Yes - ENDOCRINE/METABOLIC Hx Endocrine Disorders: No - HEMATOLOGICAL/ONCOLOGICAL Hx Blood Transfusions: No - INTEGUMENTARY Hx Dermatological Problems: Yes - MUSCULOSKELETAL/RHEUMATOLOGICAL Hx Arthritis: Yes Hx Osteoporosis: (.) - GASTROINTESTINAL Hx Gastrointestinal Disorders: No HX Swallowing Problems: Yes (History of benign esophageal stricture) - GENITOURINARY/GYNECOLOGICAL Hx Genitourinary Disorders: Yes Hx Prostate Problems: Yes (ENLARGED) - PSYCHIATRIC Hx Substance Use: No - SURGICAL HISTORY Hx Appendectomy: Yes - ANESTHESIA Hx Anesthesia: Yes Hx Anesthesia Reactions: No Hx Malignant Hyperthermia: No Meds Allergies/Adverse Reactions: Allergies Allergy/AdvReac Type Severity Reaction Status Date / Time No Known Allergies Allergy Verified 04/05/19 05:38 - Medications Medications: Current Medications Amlodipine Besylate (Norvasc) 10 mg PO DAILY [facility] Last Admin: 04/05/19 10:53 Dose: 10 mg Carvedilol (Coreg) 12.5 mg PO BID [facility] Last Admin: 04/05/19 10:54 Dose: 12.5 mg Sodium Chloride (Sodium Chloride 0.45%) 1,000 mls @ 80 mls/hr IV .[id number] [facility] Last Admin: 04/05/19 10:54 Dose: 80 mls/hr Lisinopril (Zestril) 40 mg PO DAILY [facility] Last Admin: 04/05/19 10:53 Dose: 40 mg Rivaroxaban (Xarelto) 15 mg PO DAILY [facility] Last Admin: 04/05/19 10:53 Dose: 15 mg Results - Vital Signs Recent Vital Signs: Last Vital Signs Temp 97.8 F 04/05/19 09:10 Pulse 64 04/05/19 11:50 Resp 20 04/05/19 09:10 BP 128/76 04/05/19 10:54 Pulse Ox 100 04/05/19 09:10 - Labs Result Diagrams: 04/05/19 06:20 04/05/19 06:20 Labs: Laboratory Results - last 24 hr 04/05/19 04/05/19 04/05/19 05:33 06:20 06:20 WBC 5.5 RBC 5.32 Hgb 14.9 Hct 45.3 MCV 85.2 MCH 28.0 MCHC 32.9 L RDW 14.2 Plt Count 172 MPV 8.8 Neut % (Auto) 66.3 Lymph % (Auto) 19.6 L [place] % (Auto) 8.6 Eos % (Auto) 4.6 H Baso % (Auto) 0.9 Neut # (Auto) 3.7 Lymph # (Auto) 1.1 [place] # (Auto) 0.5 Eos # (Auto) 0.3 Baso # (Auto) 0.0 PT 22.1 H INR 2.0 APTT 39.9 H Sodium Potassium Chloride Carbon Dioxide Anion Gap BUN Creatinine Est GFR ( Amer) Est GFR (Non-Af Amer) POC Glucose (mg/dL) 107 Random Glucose Calcium Total Bilirubin AST ALT Alkaline Phosphatase Troponin I Total Protein Albumin Globulin Albumin/Globulin Ratio Urine Color Urine Clarity Urine pH Ur Specific [place] Urine Protein Urine Glucose (UA) Urine Ketones Urine Blood Urine Nitrate Urine Bilirubin Urine Urobilinogen Ur Leukocyte Esterase Urine WBC (Auto) Urine RBC (Auto) Ur Squamous Epith Cells 04/05/19 04/05/19 06:20 07:58 WBC RBC Hgb Hct MCV MCH MCHC RDW Plt Count MPV Neut % (Auto) Lymph % (Auto) [place] % (Auto) Eos % (Auto) Baso % (Auto) Neut # (Auto) Lymph # (Auto) [place] # (Auto) Eos # (Auto) Baso # (Auto) PT INR APTT Sodium 135 Potassium 3.9 Chloride 100 Carbon Dioxide 25 Anion Gap 13 BUN 29 H Creatinine 1.5 Est GFR ( Amer) 54 Est GFR (Non-Af Amer) 44 POC Glucose (mg/dL) Random Glucose 96 Calcium 9.5 Total Bilirubin 0.8 AST 22 ALT 15 L Alkaline Phosphatase 67 Troponin I 0.0210 Total Protein 7.2 Albumin 4.0 Globulin 3.2 Albumin/Globulin Ratio 1.2 Urine Color Yellow Urine Clarity Clear Urine pH 5.0 Ur Specific [place] 1.013 Urine Protein Negative Urine Glucose (UA) Normal Urine Ketones Negative Urine Blood Negative Urine Nitrate Negative Urine Bilirubin Negative Urine Urobilinogen 4.0 Ur Leukocyte Esterase Neg Urine WBC (Auto) 1 Urine RBC (Auto) 1 Ur Squamous Epith Cells < 1
[2019-04-05 14:36] LABS: CK-MB 1.9 ng/mL (0.0-3.38); TROPONIN I 0.015 ng/mL (0.00-0.120)
--- NOTE | 2019-04-05 16:02 | CON ---
DATE: 04/05/2019 NEUROLOGY CONSULT HISTORY OF PRESENT ILLNESS: Mr. Navarrete is an 83-year-old male with past medical history of paroxysmal AFib, pacemaker, on Xarelto and hypertension, who presented to the emergency room after he woke up feeling dizzy whereupon he was going from a sitting to a standing position, felt everything moving and felt flash of light. There was no loss of consciousness. There was no aphasia. There was no dysarthria. There was no motor or sensory issues. This has never happened to the patient before. REVIEW OF SYSTEMS: Currently is negative for nausea, vomiting, diarrhea, headaches. Significant for malaise. The patient denies otalgia, recent infection or sick contacts. CT of the head was done and shows the following. Mild atrophy. No old strokes. No hemorrhages. PAST MEDICAL HISTORY: Ascites, AFib, BPH, cardiac arrhythmia, CHF, hypertension, hypercholesterolemia, kidney stones, peripheral edema and chronic kidney disease. PAST SURGICAL HISTORY: Appendectomy, endoscopy one month ago, pacemaker in place. FAMILY AND SOCIAL HISTORY: No tobacco, no alcohol. Lives alone. ALLERGIES: NO KNOWN DRUG ALLERGIES. PHYSICAL EXAMINATION: NEUROLOGIC: The patient is alert, awake, and oriented x3. Cranial nerves II to XII normal. Pupils equal and reactive to light. Visual adrian full. Motor is 5/5 upper and lower bilaterally. Sensory is intact to fine touch, pin, position, sense. Cerebellar: Cranial nerves show no dysmetria. Gait is not tested as the patient feels a little bit stable. Of note, Lan Hallpike maneuver was negative. LABORATORY DATA: Were as follows. CBC is normal. Coaxial PT 22, PTT 39.9. Chemistries only significant for BUN 29, creatinine 1.5. Urines are normal. IMPRESSION: This is an 83-year-old male with a history of atrial fibrillation, who is at risk for stroke. He did have an incident of dizziness. He will be preferable to get an MRI of the brain, however, we cannot do the pacemaker. Repeat CT of the head will be sufficient, this is not a stroke. Please re-consult Neurology p.r.n. Thank you for this consult. Ludwin Neri MD cc: [facility] # [id number]
--- NOTE | 2019-04-05 18:38 | CP.PCM.HP ---
History of Present Illness - History of Present Illness History of Present Illness: This is an 83 y/o male with history of hypertension and atrial fibrillation, s/p Permanent pacemaker insertion who was brought to the ER because of dizziness. Patient was discharged from the hospital about a week ago because of the same problem. He claims that he woke up early this morning and when he got up, he saw a flash of light and he felt dizzy and sat down. he seems to have gotten anxious and hence he called his daughter who called the paramedics to bring him to the ER. he denies any chest pain, no palpitations, no history of fall, no syncope. He denies any transient weakness anywhere, no seizure, no urinary incontinence. He was admitted for observation and further evaluation. Present on Admission - Present on Admission Any Indicators Present on Admission: No Review of Systems - Review of Systems All systems: reviewed and no additional remarkable complaints except - EENT Ears: Decreased Hearing - Cardiovascular Cardiovascular: As Per HPI, Dyspnea on Exertion - Respiratory Respiratory: Dyspnea on Exertion - Gastrointestinal Gastrointestinal: Dysphagia - Neurological Neurological: As Per HPI - Psychiatric Psychiatric: As Per HPI Past Patient History - Infectious Disease Hx of Infectious Diseases: None - Past Medical History & Family History Past Medical History?: Yes - Past Social History Smoking Status: Former Smoker Chewing Tobacco Use: No Alcohol: None Home Situation {Lives}: Alone - CARDIAC Hx Atrial Fibrillation: Yes Hx Cardia Arrhythmia: Yes (A FIB) Hx Congestive Heart Failure: Yes Hx Hypercholesterolemia: Yes Hx Hypertension: Yes Hx Pacemaker: Yes Hx Peripheral Edema: Yes - PULMONARY Hx Respiratory Disorders: No - NEUROLOGICAL Hx Paralysis: No - HEENT Hx HEENT Problems: Yes Hx Cataracts: Yes (JOEL. REMOVED) - RENAL Hx Chronic Kidney Disease: Yes Hx Kidney Stones: Yes - ENDOCRINE/METABOLIC Hx Endocrine Disorders: No - HEMATOLOGICAL/ONCOLOGICAL Hx Blood Transfusions: No - INTEGUMENTARY Hx Dermatological Problems: Yes - MUSCULOSKELETAL/RHEUMATOLOGICAL Hx Arthritis: Yes Hx Osteoporosis: (.) - GASTROINTESTINAL Hx Gastrointestinal Disorders: Yes (esophageal stricture) Hx Gastroesophageal Reflux: Yes HX Swallowing Problems: Yes (History of benign esophageal stricture) - GENITOURINARY/GYNECOLOGICAL Hx Genitourinary Disorders: Yes Hx Prostate Problems: Yes (ENLARGED) - PSYCHIATRIC Hx Substance Use: No - SURGICAL HISTORY Hx Appendectomy: Yes - ANESTHESIA Hx Anesthesia: Yes Hx Anesthesia Reactions: No Hx Malignant Hyperthermia: No Meds Allergies/Adverse Reactions: Allergies Allergy/AdvReac Type Severity Reaction Status Date / Time No Known Allergies Allergy Verified 04/05/19 05:38 Physical Exam - Constitutional Appears: No Acute Distress - Head Exam Head Exam: ATRAUMATIC - Eye Exam Eye Exam: Normal appearance - ENT Exam ENT Exam: Normal Exam - Neck Exam Neck exam: Positive for: Normal Inspection - Respiratory Exam Respiratory Exam: Clear to Auscultation Bilateral, NORMAL BREATHING PATTERN - Cardiovascular Exam Cardiovascular Exam: REGULAR RHYTHM, +S1, +S2 - GI/Abdominal Exam GI & Abdominal Exam: Normal Bowel Sounds, Soft - Extremities Exam Extremities exam: Positive for: normal inspection - Back Exam Back exam: NORMAL INSPECTION - Neurological Exam Neurological exam: Alert, Oriented x3, Reflexes Normal - Psychiatric Exam Psychiatric exam: Normal Affect, Normal Mood - Skin Skin Exam: Dry, Intact, Normal Color, Warm Results - Vital Signs Recent Vital Signs: Last Vital Signs Temp 98.0 F 04/05/19 15:00 Pulse 64 04/05/19 17:12 Resp 20 04/05/19 15:00 BP 118/68 04/05/19 18:19 Pulse Ox 99 04/05/19 17:10 - Labs Result Diagrams: 04/05/19 06:20 04/06/19 07:55 Labs: Laboratory Results - last 24 hr 04/05/19 04/05/19 04/05/19 05:33 06:20 06:20 WBC 5.5 RBC 5.32 Hgb 14.9 Hct 45.3 MCV 85.2 MCH 28.0 MCHC 32.9 L RDW 14.2 Plt Count 172 MPV 8.8 Neut % (Auto) 66.3 Lymph % (Auto) 19.6 L [place] % (Auto) 8.6 Eos % (Auto) 4.6 H Baso % (Auto) 0.9 Neut # (Auto) 3.7 Lymph # (Auto) 1.1 [place] # (Auto) 0.5 Eos # (Auto) 0.3 Baso # (Auto) 0.0 PT 22.1 H INR 2.0 APTT 39.9 H Sodium Potassium Chloride Carbon Dioxide Anion Gap BUN Creatinine Est GFR ( Amer) Est GFR (Non-Af Amer) POC Glucose (mg/dL) 107 Random Glucose Calcium Total Bilirubin AST ALT Alkaline Phosphatase Total Creatine Kinase CK-MB (Mass) Troponin I Total Protein Albumin Globulin Albumin/Globulin Ratio Urine Color Urine Clarity Urine pH Ur Specific [place] Urine Protein Urine Glucose (UA) Urine Ketones Urine Blood Urine Nitrate Urine Bilirubin Urine Urobilinogen Ur Leukocyte Esterase Urine WBC (Auto) Urine RBC (Auto) Ur Squamous Epith Cells 04/05/19 04/05/19 04/05/19 06:20 07:58 14:04 WBC RBC Hgb Hct MCV MCH MCHC RDW Plt Count MPV Neut % (Auto) Lymph % (Auto) [place] % (Auto) Eos % (Auto) Baso % (Auto) Neut # (Auto) Lymph # (Auto) [place] # (Auto) Eos # (Auto) Baso # (Auto) PT INR APTT Sodium 135 Potassium 3.9 Chloride 100 Carbon Dioxide 25 Anion Gap 13 BUN 29 H Creatinine 1.5 Est GFR ( Amer) 54 Est GFR (Non-Af Amer) 44 POC Glucose (mg/dL) Random Glucose 96 Calcium 9.5 Total Bilirubin 0.8 AST 22 ALT 15 L Alkaline Phosphatase 67 Total Creatine Kinase 71 CK-MB (Mass) 1.90 Troponin I 0.0210 0.0150 Total Protein 7.2 Albumin 4.0 Globulin 3.2 Albumin/Globulin Ratio 1.2 Urine Color Yellow Urine Clarity Clear Urine pH 5.0 Ur Specific [place] 1.013 Urine Protein Negative Urine Glucose (UA) Normal Urine Ketones Negative Urine Blood Negative Urine Nitrate Negative Urine Bilirubin Negative Urine Urobilinogen 4.0 Ur Leukocyte Esterase Neg Urine WBC (Auto) 1 Urine RBC (Auto) 1 Ur Squamous Epith Cells < 1 Assessment & Plan (1) Dizziness Status: Acute Priority: High Comment: Neuro consult requested. (2) Dehydration Status: Acute Priority: High Comment: will start IVF (3) Atrial fibrillation Status: Chronic Priority: Medium (4) Hypertension Status: Chronic Priority: Medium Comment: continue current meds. (5) Presence of cardiac pacemaker Status: Chronic Priority: Medium Decision To Admit - Pt Status Changed To: Hospital Disposition Of: Observation - . Bed Request Type: Telemetry Admitting Physician: Carla Henry
[2019-04-06 07:50] VITALS: TEMP 97.6
[2019-04-06 08:37] LABS: BLOOD UREA NITROGEN 26 mg/dL (9-20); GFR NON-AFRICAN AMERICAN 52
[2019-04-06 08:49] LABS: CK-MB 1.72 ng/mL (0.0-3.38); TROPONIN I 0.02 ng/mL (0.00-0.120)
[2019-04-06] MEDS ORDERED: Pantoprazole 40 mg EC Tab PO SCH (10:00)
[2019-04-06 10:28] VITALS: BP 130/73
[2019-04-06 11:13] VITALS: PULSE 64; RESP 18; O2SAT 99
[2019-04-06] MEDS: Sodium Chloride 0.45% 1,000 ML IV SCH (11:13)
--- NOTE | 2019-04-06 12:38 | CP.PCM.DIS ---
Provider - Provider Date of Admission: 04/05/19 07:01 Attending physician: Carla Henry MD Primary care physician: Dayday Henry Consults: 04/05/19 07:02 Physician Consult Routine Comment: Consulting Provider: Ludwin Neri Consulting Physician: Ludwin Neri Reason for Consult: dizziness Time Spent in preparation of Discharge (in minutes): 45 Diagnosis - Discharge Diagnosis (1) Dizziness Status: Resolved Priority: High (2) Dehydration Status: Acute Priority: High Comment: improving with hydration and patient advised to push fluids po. (3) Atrial fibrillation Status: Chronic Priority: Medium (4) Hypertension Status: Chronic Priority: Medium (5) Presence of cardiac pacemaker Status: Chronic Priority: Medium Hospital Course - Lab Results Lab Results: Most Recent Lab Values WBC 5.5 K/uL (4.8-10.8) 04/05/19 06:20 RBC 5.32 Mil/uL (4.40-5.90) 04/05/19 06:20 Hgb 14.9 g/dL (12.0-18.0) 04/05/19 06:20 Hct 45.3 % (35.0-51.0) 04/05/19 06:20 MCV 85.2 fL (80.0-94.0) 04/05/19 06:20 MCH 28.0 pg (27.0-31.0) 04/05/19 06:20 MCHC 32.9 g/dL (33.0-37.0) L 04/05/19 06:20 RDW 14.2 % (11.5-14.5) 04/05/19 06:20 Plt Count 172 K/uL (130-400) 04/05/19 06:20 MPV 8.8 fL (7.2-11.7) 04/05/19 06:20 Neut % (Auto) 66.3 % (50.0-75.0) 04/05/19 06:20 Lymph % (Auto) 19.6 % (20.0-40.0) L 04/05/19 06:20 [place] % (Auto) 8.6 % (0.0-10.0) 04/05/19 06:20 Eos % (Auto) 4.6 % (0.0-4.0) H 04/05/19 06:20 Baso % (Auto) 0.9 % (0.0-2.0) 04/05/19 06:20 Neut # (Auto) 3.7 K/uL (1.8-7.0) 04/05/19 06:20 Lymph # (Auto) 1.1 K/uL (1.0-4.3) 04/05/19 06:20 [place] # (Auto) 0.5 K/uL (0.0-0.8) 04/05/19 06:20 Eos # (Auto) 0.3 K/uL (0.0-0.7) 04/05/19 06:20 Baso # (Auto) 0.0 K/uL (0.0-0.2) 04/05/19 06:20 PT 22.1 SECONDS (9.7-12.2) H 04/05/19 06:20 INR 2.0 04/05/19 06:20 APTT 39.9 SECONDS (21-34) H 04/05/19 06:20 Sodium 135 mmol/L (132-148) 04/06/19 07:55 Potassium 4.7 mmol/L (3.6-5.2) 04/06/19 07:55 Chloride 102 mmol/L (98-107) 04/06/19 07:55 Carbon Dioxide 26 mmol/L (22-30) 04/06/19 07:55 Anion Gap 12 (10-20) 04/06/19 07:55 BUN 26 mg/dL (9-20) H 04/06/19 07:55 Creatinine 1.3 mg/dL (0.8-1.5) 04/06/19 07:55 Est GFR ( Amer) > 60 04/06/19 07:55 Est GFR (Non-Af Amer) 52 04/06/19 07:55 POC Glucose (mg/dL) 107 mg/dL (65-110) 04/05/19 05:33 Random Glucose 82 mg/dL (75-110) 04/06/19 07:55 Calcium 9.0 mg/dl (8.6-10.4) 04/06/19 07:55 Total Bilirubin 0.8 mg/dL (0.2-1.3) 04/05/19 06:20 AST 22 U/L (17-59) 04/05/19 06:20 ALT 15 U/L (21-72) L 04/05/19 06:20 Alkaline Phosphatase 67 U/L (38-126) 04/05/19 06:20 Total Creatine Kinase 54 U/L (55-170) L 04/06/19 07:55 CK-MB (Mass) 1.72 ng/mL (0.0-3.38) 04/06/19 07:55 Troponin I 0.0200 ng/mL (0.00-0.120) 04/06/19 07:55 Total Protein 7.2 g/dL (6.3-8.3) 04/05/19 06:20 Albumin 4.0 g/dL (3.5-5.0) 04/05/19 06:20 Globulin 3.2 gm/dL (2.2-3.9) 04/05/19 06:20 Albumin/Globulin Ratio 1.2 (1.0-2.1) 04/05/19 06:20 Urine Color Yellow (YELLOW) 04/05/19 07:58 Urine Clarity Clear (Clear) 04/05/19 07:58 Urine pH 5.0 (5.0-8.0) 04/05/19 07:58 Ur Specific [place] 1.013 (1.003-1.030) 04/05/19 07:58 Urine Protein Negative mg/dL (NEGATIVE) 04/05/19 07:58 Urine Glucose (UA) Normal mg/dL (Normal) 04/05/19 07:58 Urine Ketones Negative mg/dL (NEGATIVE) 04/05/19 07:58 Urine Blood Negative (NEGATIVE) 04/05/19 07:58 Urine Nitrate Negative (NEGATIVE) 04/05/19 07:58 Urine Bilirubin Negative (NEGATIVE) 04/05/19 07:58 Urine Urobilinogen 4.0 mg/dL (0.2-1.0) 04/05/19 07:58 Ur Leukocyte Esterase Neg Aashish/uL (Negative) 04/05/19 07:58 Urine WBC (Auto) 1 /hpf (0-5) 04/05/19 07:58 Urine RBC (Auto) 1 /hpf (0-3) 04/05/19 07:58 Ur Squamous Epith Cells < 1 /hpf (0-5) 04/05/19 07:58 - Hospital Course Hospital Course: This is an 83 y/o patient who was brought to the ER because of recurrent dizziness. Patient woke up early in the morning and noted some flash of light followed by dizziness. he denies any focal weakness, palpitation, syncope. There is no seizure activity noted. He was admitted last week for the same problem and cardiaovascular studies then were negative. CT Scan of the head was repeated during this admission and di not show any sign of stroke. Neuro consultation was also obtained and found no sign of stroke at this time. He was started on fluid infusion with improvement in his renal function. He has been asymtpomatic since admission. He got out of bed and ambulated with physical therapist and tolerated it well without any dizzy spell. he will be discharged to day on all his current meds except for the fusrosemide. Advised to see me int he office in 7-10 days. Discharge Exam - Head Exam Head Exam: ATRAUMATIC - Eye Exam Eye Exam: Normal appearance - ENT Exam ENT Exam: Normal Exam - Neck Exam Neck exam: Normal Inspection - Respiratory Exam Respiratory Exam: Clear to PA & Lateral, NORMAL BREATHING PATTERN - Cardiovascular Exam Cardiovascular Exam: REGULAR RHYTHM, RRR, +S1, +S2 - GI/Abdominal Exam GI & Abdominal Exam: Normal Bowel Sounds, Soft - Extremities Exam Extremities exam: normal inspection - Neurological Exam Neurological exam: Alert, Oriented x3 - Psychiatric Exam Psychiatric exam: Normal Affect, Normal Mood - Skin Skin Exam: Dry, Intact, Normal Color, Warm Discharge Plan - Follow Up Plan Condition: STABLE Disposition: HOME/ ROUTINE Instructions: Heart Failure, Adult (DC), Dizziness, Nonvertigo, (DC) Referrals: Carla Henry MD [Staff Provider] - Ludwin Neri MD [Staff Provider] - Clinical Quality Measures - CQM - Stroke Antithrombotic Prescribed: Yes
== END 2019-04-06 14:29 | disposition home or self-care (01) ==
LOC: C.ER 05:27 → C.9E 07:01 → C.5S 08:15
PROVIDERS: ADMIT Internal Medicine Cardiovascular Disease; ATTEND Internal Medicine Cardiovascular Disease
DX: R42 Dizziness and giddiness (principal); E86.0 Dehydration; I48.0 Paroxysmal atrial fibrillation; I13.0 Hypertensive heart and chronic kidney disease with heart failure and stage 1 through stage 4 chronic kidney disease, or unspecified chronic kidney disease; N18.9 Chronic kidney disease, unspecified; I50.9 Heart failure, unspecified; E78.00 Pure hypercholesterolemia, unspecified; Z87.442 Personal history of urinary calculi; N40.0 Benign prostatic hyperplasia without lower urinary tract symptoms; Z95.0 Presence of cardiac pacemaker; Z87.891 Personal history of nicotine dependence; K21.9 Gastro-esophageal reflux disease without esophagitis; M19.90 Unspecified osteoarthritis, unspecified site; Z90.49 Acquired absence of other specified parts of digestive tract; Z79.899 Other long term (current) drug therapy
CPT/HCPCS: 36415; 70450; 80048; 80053; 81001; 82948; 84484; 85025; 85610; 85730; 97116; 97161; 99285; G0378; G8978; G8979; G8980; J7030